=== PATIENT | male | born 1970 | race Caucasian/White ===

== ENCOUNTER 2018-03-13 14:34 | Emergency (ER) | payer MEDICAID ==
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
[2018-03-13 16:25] VITALS: BP 118/86
== END 2018-03-13 16:23 | disposition home or self-care (01) ==
DX: S42.211A Unspecified displaced fracture of surgical neck of right humerus, initial encounter for closed fracture (principal); Z87.891 Personal history of nicotine dependence; V89.2XXA Person injured in unspecified motor-vehicle accident, traffic, initial encounter; Y92.410 Unspecified street and highway as the place of occurrence of the external cause

== ENCOUNTER → 2018-04-04 | Outpatient (CLI) | payer MEDICAID | LOC: BMCIMAGING 09:00 | PROVIDERS: ATTEND Orthopaedic Surgery | DX: S42.294D Other nondisplaced fracture of upper end of right humerus, subsequent encounter for fracture with routine healing (principal) ==

== ENCOUNTER → 2018-05-02 | Outpatient (CLI) | payer MEDICAID | LOC: BMCIMAGING 09:20 | PROVIDERS: ATTEND Physician Assistant | DX: S42.294D Other nondisplaced fracture of upper end of right humerus, subsequent encounter for fracture with routine healing (principal) ==